=== PATIENT | male | born 1930 | race Caucasian/White ===

== ENCOUNTER 2016-07-22 19:39 | Day surgery (SDCO) | payer OTHER ==
[~2016-07-22 19:39] MED LIST: ALLOPURINOL300 MG PO; ASCORBIC ACID500 MG PO; ASPIRIN CHEWABL81 MG PO; ATENOLOL25 MG PO; BACTROBAN NASAL1 GM TOP; CERTAGEN1 EACH PO; CLARITIN10 MG PO; COENZYME Q10400 MG PO; FLOMAX0.4 MG PO; ISOSORBIDE DINI10 M1 PO; LYRICA100 MG PO; MUCINEX 600MG600 MG PO; NORCO 5-325 TA1 EACH PO; PHENERGAN25 M1 PO; PRILOSEC20 MG PO; TRIAMCINOLONE 080 GM TOP; VITAMIN B PO; VITAMIN D35000 UNI1 PO; VYTORIN 10-801 EACH PO; ZOLOFT50 MG PO
[2016-07-22 20:19] LABS: BASOPHIL 0.4 % (0-2); HCT 35.8 % (42.0-52.0); HGB 12.3 g/dl (13.2-18.0); LYMPHOCYTE 34.2 % (15-48); MCH 34.1 pg (25.0-31.0); MCHC 34.4 g/dL (32.0-36.0); MCV 99.2 fL (78.0-100.0); MONOCYTE 8.9 % (0-12); NEUTROPHIL 54.5 % (41-80); PLT 183 K/uL (150-400); RBC 3.61 M/uL (4.70-6.00); RDW 15.2 % (11.5-14.0); WBC 7.6 K/uL (4.0-10.5)
[2016-07-22 20:30] LABS: BILIRUBIN - TOTAL 0.5 mg/dL (0.1-1.0); CREATININE 1.1 mg/dL (0.7-1.2); GLOBULIN (CALCULATION) 2.2 g/dL (2.2-4.2); POTASSIUM 4.1 mmol/L (3.5-5.1); TOTAL PROTEIN 6.2 g/dL (6.4-8.3)
[2016-07-22 20:32] LABS: CKMB 1.51 ng/mL (0.97-4.94); TROPONIN T < 0.010 ng/mL
[2016-07-22 21:36] LABS: BILIRUBIN NEGATIVE (NEGATIVE); BLOOD NEGATIVE Ery/uL (NEGATIVE); CLARITY CLEAR (CLEAR); COLOR YELLOW (YELLOW); GLUCOSE (U) NORMAL (NORMAL); KETONE (U) NEGATIVE (NEGATIVE); LEUKOCYTES NEGATIVE Leu/uL (NEGATIVE); NITRITE NEGATIVE (NEGATIVE); PROTEIN NEGATIVE (NEGATIVE); UROBILINOGEN 0.2 mg/dL (0.2-1.0)
[2016-07-22 23:00] LABS: INR 1.06 (0.9-1.2); PROTHROMBIN TIME 13.4 SECONDS (11.7-14.0); PTT 32.5 SECONDS (23.2-31.4)
[2016-07-23 08:50] LABS: CREATININE 0.9 mg/dL (0.7-1.2)
[2016-07-24 04:08] LABS: HCT 37.9 % (42.0-52.0); HGB 12.9 g/dl (13.2-18.0); MCH 33.6 pg (25.0-31.0); MCV 98.7 fL (78.0-100.0); MPV 10.7 fL (6.0-9.5); RBC 3.84 M/uL (4.70-6.00); RDW 15.4 % (11.5-14.0); WBC 8.7 K/uL (4.0-10.5)
[2016-07-24 04:24] LABS: CKMB 1.21 ng/mL (0.97-4.94); TROPONIN T < 0.010 ng/mL
[2016-07-24 04:28] LABS: POTASSIUM 3.7 mmol/L (3.5-5.1)
--- NOTE | 2016-07-24 10:12 | NUR ---
0802: PT C/O OF MIDSTERNAL CHEST SORENESS. RATING SORENESS A 5 ON SCALE FRO 1-10. PT ALREADY HAS ON 2L 02 VIA NC. DENIES SHORTNESS OF BREATH, DOES C/O NAUSEA. EKG OBTAINED. DR. ECHEVARRIA MADE AWARE. PT IS ALREADY CARDIO CONSULT FOR THIS AM. VSS. SORENESS DOES NOT RADIATE ANYWHERE. PT STATES THAT SORENESS STARTED OVERNIGHT THAT LAST BUT HE THOUGHT IT WOULD GO AWAY SO HE DIDNT TELL ANYONE AND THE SORENESS NEVER WENT AWAY. BP NOW 167/83, FIRST NITRO GIVEN AT THIS TIME. 0817: BP 147/78, PAIN RATED AT 5 WITH NO CHANGE. SECOND NITRO GIVEN SL. 0817: BP NOW 122/76, PAIN REMAINS A 5 OUT OF 10. THIRD NITRO GIVEN. 0827: BP NOW 163/79, PAIN RATED A 3. DR. ECHEVARRIA MADE AWARE THAT SORENESS REMAINS. DR GUERRERO ALSO NOTIFIED AT BEDSIDE. NO NEW ORDERS RECEIVED. WILL CONT TO MONITOR CLOSELY.
== END 2016-07-24 21:05 | disposition other institution (70) ==
LOC: FER 19:39 → FTCU 21:00
PROVIDERS: Emergency Medicine; Internal Medicine Cardiovascular Disease; ADMIT Internal Medicine
DX: I25.110 Atherosclerotic heart disease of native coronary artery with unstable angina pectoris (principal); I10 Essential (primary) hypertension; J44.9 Chronic obstructive pulmonary disease, unspecified; E11.42 Type 2 diabetes mellitus with diabetic polyneuropathy; G47.33 Obstructive sleep apnea (adult) (pediatric); E78.5 Hyperlipidemia, unspecified; E66.9 Obesity, unspecified; M10.9 Gout, unspecified; F41.9 Anxiety disorder, unspecified; F41.0 Panic disorder [episodic paroxysmal anxiety]; N40.0 Benign prostatic hyperplasia without lower urinary tract symptoms; Z95.5 Presence of coronary angioplasty implant and graft; Z90.49 Acquired absence of other specified parts of digestive tract; Z83.6 Family history of other diseases of the respiratory system; Z80.1 Family history of malignant neoplasm of trachea, bronchus and lung; Z82.49 Family history of ischemic heart disease and other diseases of the circulatory system; Z79.1 Long term (current) use of non-steroidal anti-inflammatories (NSAID); Z79.82 Long term (current) use of aspirin; Z79.899 Other long term (current) drug therapy; Z98.890 Other specified postprocedural states
CPT/HCPCS: 36415; 71020; 80048; 80053; 80061; 81003; 82550; 82553; 82962; 83690; 83735; 84484; 85025; 85610; 85730; 93005; G0378; J2405

== ENCOUNTER 2020-03-27 08:31 | Emergency (ER) | payer OTHER | END 2020-03-27 09:30 | disposition home or self-care (01) | LOC: FER 08:31 | DX: M75.92 Shoulder lesion, unspecified, left shoulder (principal); Z88.5 Allergy status to narcotic agent; Z88.6 Allergy status to analgesic agent | CPT/HCPCS: 99283; J2930 ==

== ENCOUNTER 2020-07-21 10:07 | Emergency (ER) | payer OTHER ==
[2020-07-21 10:51] LABS: BASOPHIL 0.4 % (0-2); EOSINOPHIL 3.3 % (0-7); HCT 29.3 % (42.0-52.0); HGB 10.1 g/dl (13.2-18.0); LYMPHOCYTE 33.6 % (15-48); MCHC 34.5 g/dL (32.0-36.0); MCV 107.3 fL (78.0-100.0); MONOCYTE 7.5 % (0-12); MPV 11.7 fL (6.0-9.5); NEUTROPHIL 54.9 % (41-80); NRBC 0.3; PLT 188 K/uL (150-400); RBC 2.73 M/uL (4.70-6.00); RDW 16.1 % (11.5-14.0); WBC 6.8 K/uL (4.0-10.5)
[2020-07-21 11:08] LABS: PRO-BNP 979 pg/mL (<450)
[2020-07-21 11:11] LABS: ALBUMIN 4.1 g/dL (3.4-5.0); BILIRUBIN - TOTAL 0.8 mg/dL (0.2-1.0); BUN/CREAT RATIO (CALC) 14.4 RATIO; CREATININE 1.32 mg/dL (0.67-1.17); GLOBULIN (CALCULATION) 2.9 g/dL; POTASSIUM 4.2 mmol/L (3.5-5.1)
[2020-07-21] MEDS ORDERED: LASIX20 MG PO (13:08)
== END 2020-07-21 13:48 | disposition home or self-care (01) ==
LOC: FER 10:07
PROVIDERS: Emergency Medicine
DX: I50.9 Heart failure, unspecified (principal); I44.0 Atrioventricular block, first degree; Z87.891 Personal history of nicotine dependence; Z88.5 Allergy status to narcotic agent; Z79.899 Other long term (current) drug therapy
CPT/HCPCS: 36415; 71045; 80053; 83605; 83880; 84145; 84484; 85025; 85379; 93005

== ENCOUNTER 2020-08-21 04:38 | Inpatient (IN) | payer OTHER ==
[~2020-08-21] VITALS: Ht 172.7 cm; Wt 87.3 kg
[~2020-08-21 04:38] MED LIST changes: +LASIX20 MG PO
[2020-08-21 05:02] LABS: BASOPHIL 0.4 % (0-2); EOSINOPHIL 1.1 % (0-7); HCT 31.2 % (42.0-52.0); HGB 10.5 g/dl (13.2-18.0); LYMPHOCYTE 15.2 % (15-48); MCHC 33.7 g/dL (32.0-36.0); MCV 106.8 fL (78.0-100.0); MONOCYTE 6.6 % (0-12); MPV 11.7 fL (6.0-9.5); NEUTROPHIL 76.2 % (41-80); NRBC 0.3; PLT 195 K/uL (150-400); RBC 2.92 M/uL (4.70-6.00); RDW 16.8 % (11.5-14.0); WBC 10.6 K/uL (4.0-10.5)
[2020-08-21 05:26] LABS: INR 1.2 (0.9-1.2); PROTHROMBIN TIME 14.4 SECONDS (11.4-13.6)
[2020-08-21 05:27] LABS: D-DIMER 0.61 ug/mLFEU (0.00-0.41)
[2020-08-21 05:33] LABS: BILIRUBIN - TOTAL 1.2 mg/dL (0.2-1.0); BUN/CREAT RATIO (CALC) 15.5 RATIO; CREATININE 1.03 mg/dL (0.67-1.17); GLOBULIN (CALCULATION) 3.7 g/dL; POTASSIUM 3.9 mmol/L (3.5-5.1); TOTAL PROTEIN 7.7 g/dL (6.4-8.2)
[2020-08-21 05:40] LABS: PRO-BNP 1928 pg/mL (<450)
[2020-08-21 05:49] LABS: LACTIC ACID 1.8 mmol/L (0.4-1.9)
[2020-08-21 08:37] LABS: BILIRUBIN NEGATIVE (NEGATIVE); BLOOD NEGATIVE Ery/uL (NEGATIVE); CLARITY CLEAR (CLEAR); COLOR YELLOW (YELLOW); GLUCOSE (U) NORMAL (NORMAL); LEUKOCYTES NEGATIVE Leu/uL (NEGATIVE); NITRITE NEGATIVE (NEGATIVE); PROTEIN NEGATIVE (NEGATIVE); UROBILINOGEN 0.2 mg/dL (0.2-1.0); pH 6.5 (5.0-9.0)
[2020-08-21] MEDS ORDERED: ZOCOR40 MG PO (13:04)
[2020-08-21] MEDS ORDERED: JANUMET XR 1001 EACH PO (13:05)
[2020-08-21] MEDS ORDERED: PROSCAR5 MG PO (13:06)
[2020-08-21] MEDS ORDERED: ISOSORBIDE MONO30 MG PO (13:08)
[2020-08-21] MEDS ORDERED: ZETIA10 MG PO (13:10)
[2020-08-21] MEDS ORDERED: LASIX40 MG PO (13:11)
[2020-08-21 15:19] LABS: IRON % SATURATION 19.4 %SAT (20-50)
[2020-08-21 15:22] LABS: RETICULOCYTE COUNT 3.2 % (1.0-2.0)
[2020-08-21 15:58] LABS: FOLIC ACID (SERUM) 89.9 ng/mL (8.6-58.9)
[2020-08-22 04:38] LABS: BASOPHIL 0.3 % (0-2); EOSINOPHIL 0.3 % (0-7); HGB 10.3 g/dl (13.2-18.0); LYMPHOCYTE 24.5 % (15-48); MCH 36.3 pg (25.0-31.0); MCHC 34.3 g/dL (32.0-36.0); MCV 105.6 fL (78.0-100.0); MONOCYTE 9.8 % (0-12); MPV 11.7 fL (6.0-9.5); NEUTROPHIL 64.7 % (41-80); NRBC 0.2; PLT 184 K/uL (150-400); RBC 2.84 M/uL (4.70-6.00); WBC 9.8 K/uL (4.0-10.5)
[2020-08-22 05:04] LABS: BUN/CREAT RATIO (CALC) 16.2 RATIO; CREATININE 1.05 mg/dL (0.67-1.17); MAGNESIUM 2.1 mg/dL (1.8-2.4); PHOSPHORUS 3.8 mg/dL (2.6-4.7); POTASSIUM 3.7 mmol/L (3.5-5.1)
--- NOTE | 2020-08-23 15:36 | NUR ---
08/23/20 Mr. Ching lives at [facility]. He has a C-PAP, electric wc, rw, and acane. [facility] will accept back at [facility]isted [facility]. Mr. Ching is not interested in HH per Therapy. - Patient is currently using 02. Please advise if 02 is needed at discharge.
[2020-08-24 06:16] LABS: BASOPHIL 0.5 % (0-2); HCT 28.7 % (42.0-52.0); HGB 9.6 g/dl (13.2-18.0); LYMPHOCYTE 23.5 % (15-48); MCH 35.7 pg (25.0-31.0); MCHC 33.4 g/dL (32.0-36.0); MCV 106.7 fL (78.0-100.0); MONOCYTE 8.8 % (0-12); MPV 11.7 fL (6.0-9.5); NEUTROPHIL 61.8 % (41-80); NRBC 0; PLT 215 K/uL (150-400); RBC 2.69 M/uL (4.70-6.00); RDW 16.3 % (11.5-14.0); WBC 8.4 K/uL (4.0-10.5)
[2020-08-24 06:58] LABS: BUN/CREAT RATIO (CALC) 19.4 RATIO; CREATININE 1.24 mg/dL (0.67-1.17); POTASSIUM 3.5 mmol/L (3.5-5.1)
[2020-08-24] MEDS ORDERED: VIBRAMYCIN100 MG PO (13:28)
[2020-08-24] MEDS ORDERED: PROAIR HFA8.5 GM INH (13:28)
[2020-08-24] MEDS ORDERED: LASIX40 MG PO (13:41)
== END 2020-08-24 17:50 | DRG 871 ==
LOC: FER 04:38 → FTCU 09:19 → FMS 08-23 14:40
PROVIDERS: Emergency Medicine; ADMIT Internal Medicine
DX: A41.9 Sepsis, unspecified organism (principal); J18.9 Pneumonia, unspecified organism; J96.01 Acute respiratory failure with hypoxia; E87.3 Alkalosis; G47.33 Obstructive sleep apnea (adult) (pediatric); I10 Essential (primary) hypertension; E11.9 Type 2 diabetes mellitus without complications; Z66 Do not resuscitate; Z20.822 Contact with and (suspected) exposure to COVID-19; E78.5 Hyperlipidemia, unspecified; I25.10 Atherosclerotic heart disease of native coronary artery without angina pectoris; M10.9 Gout, unspecified; N40.0 Benign prostatic hyperplasia without lower urinary tract symptoms; E78.00 Pure hypercholesterolemia, unspecified; F32.9 Major depressive disorder, single episode, unspecified; K21.9 Gastro-esophageal reflux disease without esophagitis; Z88.6 Allergy status to analgesic agent; Z88.5 Allergy status to narcotic agent; Z99.81 Dependence on supplemental oxygen; Z79.82 Long term (current) use of aspirin; Z79.899 Other long term (current) drug therapy; Z90.49 Acquired absence of other specified parts of digestive tract; Z98.890 Other specified postprocedural states; Z95.5 Presence of coronary angioplasty implant and graft
CPT/HCPCS: 36415; 71045; 71275; 80048; 80053; 81003; 82550; 82607; 82746; 82962; 83036; 83540; 83550; 83605; 83735; 83880; 84100; 84145; 84484; 85025; 85379; 85610; 87040; 87070; 87077; 87088; 87205; 93005; 94640; 94667; 94668; 96374; 97162; 97166; 97530-GP; 97535; J0360; J0696; J1940; J2543; Q9967; U0002